=== PATIENT | male | born 1965 | race Hispanic/Latino ===

== ENCOUNTER 2016-09-21 16:56 | Inpatient (IN) | payer MEDICAID ==
[2016-09-21 16:57] VITALS: BMI 25.2
--- NOTE | 2016-09-21 18:16 | C.PDOC ---
History Of Present Illness Patient is a 51 y/o M prescreened for detox, presenting requesting detox from alcohol and heroin. Reports last drink just prior to arrival. Denies somatic complaints. Time Seen by Provider: 09/21/16 18:11 Chief Complaint (Nursing): Substance Abuse Past Medical History Vital Signs: Last Vital Signs Temp 97.7 F 09/21/16 17:04 Pulse 90 09/21/16 17:04 Resp 16 09/21/16 17:04 BP 149/94 H 09/21/16 17:04 Pulse Ox 98 09/21/16 18:43 - Medical History PMH: Arthritis, Hepatitis (C) Denies: CHF, COPD, HIV, HTN, Hypercholesterolemia, Hypothyroidism, Chronic Kidney Disease, Rheumatoid Arthritis Surgical History: - [facility] Procedures ARTHROCENTESIS (10/18/14) CENTRAL VENOUS CATHETER PLACEMENT WITH GUIDANCE (10/18/14) DEBRIDEMENT OF NAIL, NAIL BED OR NAIL FOLD (10/18/14) DESTRUCT-KNEE LESION NEC (10/18/14) KNEE ARTHROSCOPY (10/18/14) KNEE SYNOVECTOMY (10/18/14) Family History: States: Unknown Family Hx - Social History Hx Alcohol Use: Yes Hx Substance Use: Yes (Heroine use) - Immunization History Hx Tetanus Toxoid Vaccination: No Hx Influenza Vaccination: No Hx Pneumococcal Vaccination: No Review Of Systems Constitutional: Negative for: Fever, Chills Cardiovascular: Negative for: Chest Pain Respiratory: Negative for: Cough, Shortness of Breath, SOB with Excertion Gastrointestinal: Negative for: Nausea, Vomiting, Abdominal Pain, Diarrhea, Constipation Genitourinary: Negative for: Dysuria Musculoskeletal: Negative for: Back Pain Neurological: Negative for: Weakness, Numbness, Headache Psych: Negative for: Anxiety, Depression Physical Exam - Physical Exam Appears: Well, Non-toxic, No Acute Distress Skin: Normal Color, Warm, Dry Eye(s): bilateral: Normal Inspection, PERRL, EOMI Chest: Symmetrical Cardiovascular: Rhythm Regular Respiratory: Normal Breath Sounds, No Rales, No Rhonchi, No Wheezing Gastrointestinal/Abdominal: Soft, No Tenderness, No Mass, No Distention Back: Normal Inspection, No CVA Tenderness Extremity: Normal ROM Neurological/Psych: Oriented x3, Normal Speech, Normal Cranial Nerves, Normal Motor Gait: Steady ED Course And Treatment - Laboratory Results Result Diagrams: 09/21/16 18:33 09/21/16 18:33 O2 Sat by Pulse Oximetry: 98 Medical Decision Making Medical Decision Making: Will get ekg, cxray, labs to medical clear for detox admission. 6:43PM Cxray negative 6:51PM CBC and CMP grossly normal. Alcohol level elevated to 208. Pending ekg and urine drug screen. 7:00PM Will sign out to Dr. Duke to follow-up and reevaluate pending psych recommendation. Disposition - Disposition Disposition Time: 19:00 Condition: FAIR - Clinical Impression Clinical Impression: Drug abuse
[2016-09-21 18:42] LABS: BASO % 0.7 % (0.0-2.0); EOS # 0.1 K/uL (0.0-0.7); EOS % 1.7 % (0.0-4.0); HEMOGLOBIN 16.4 g/dL (12.0-18.0); LYMPH # 2.2 K/uL (1.0-4.3); MEAN CELL VOLUME 91.5 fL (80.0-94.0); MEAN CORPUSCULAR HEMOGLOBIN 31.6 pg (27.0-31.0); MEAN CORPUSCULAR HGB CONC 34.5 g/dL (33.0-37.0); MEAN PLATELET VOLUME 8.3 fL (7.2-11.7); MONO # 1.5 K/uL (0.0-0.8); MONO % 22.1 % (0.0-10.0); NEUT % 43.5 % (50.0-75.0); NRBC % 0.3 % (0.0-2.0); PLATELET COUNT 189 K/uL (130-400); RBC 5.19 Mil/uL (4.40-5.90); RED CELL DISTRIBUTION WIDTH 13.5 % (11.5-14.5); WHITE BLOOD COUNT 6.9 K/uL (4.8-10.8)
[2016-09-21 18:44] LABS: ALBUMIN 4.3 g/dL (3.5-5.0)
[2016-09-21 18:46] LABS: GFR AFRICAN-AMERICAN > 60; GFR NON-AFRICAN AMERICAN > 60
[2016-09-21 18:47] LABS: ALB/GLOB RATIO 1.1 (1.0-2.1); ALT/SGPT 71 U/L (21-72); AST/SGOT 100 U/L (17-59); BLOOD UREA NITROGEN 10 mg/dL (9-20); CALCIUM 8.6 mg/dl (8.6-10.4)
[2016-09-21 19:13] LABS: URINE BILIRUBIN NEGATIVE (NEGATIVE); URINE BLOOD NEGATIVE (NEGATIVE); URINE CLARITY Clear (Clear); URINE COLOR Straw (YELLOW); URINE GLUCOSE (UA) NORMAL (Normal); URINE LEUKOCYTE ESTERASE NEG Leu/uL (Negative); URINE NITRATE NEGATIVE (NEGATIVE); URINE PROTEIN NEGATIVE (NEGATIVE); URINE UROBILINOGEN NORMAL mg/dL (0.2-1.0)
[2016-09-21 19:18] LABS: BASOPHIL 2 % (0-2); EOSINOPHIL 1 % (0-4); LYMPHOCYTE 32 % (20-40); MONOCYTE 20 % (0-10); NEUTROPHIL 45 % (50-75); PLATELET ESTIMATE NORMAL (NORMAL); TOTAL CELLS COUNTED 100
[2016-09-21 19:22] LABS: BENZODIAZEPINES, UR NEGATIVE (NEGATIVE)
[2016-09-21 19:23] LABS: BARBITURATES, UR NEGATIVE (NEGATIVE)
[2016-09-21 19:26] LABS: OPIATES, UR POSITIVE (NEGATIVE)
[2016-09-21 19:27] LABS: PHENCYCLIDINE, UR NEGATIVE (NEGATIVE)
[2016-09-22] MEDS ORDERED: Aluminum Hydroxide/Magnesium Hydroxide Susp (30 mL) PO PRN (00:46)
--- NOTE | 2016-09-22 07:59 | RAD ---
HISTORY: detox COMPARISON: None available. TECHNIQUE: Chest PA and lateral FINDINGS: Examination limited by habitus. LUNGS: No focal consolidation. Please note that chest x-ray has limited sensitivity for the detection of pulmonary masses. PLEURA: No significant pleural effusion identified. No definite pneumothorax . CARDIOVASCULAR: Heart size appears within normal limits. OSSEOUS STRUCTURES: Degenerative changes. VISUALIZED UPPER ABDOMEN: Elevation of the right hemidiaphragm. OTHER FINDINGS: None. IMPRESSION: No focal consolidation, significant pleural effusion, or definite pneumothorax identified.
[2016-09-22] MEDS: Multiple Vitamins Tab PO SCH (11:10)
--- NOTE | 2016-09-22 12:37 | PCM.BM ---
<TenzinSari vivas - Last Filed: 09/22/16 12:46> Treatment Plan Problems - Problems identified on initial assessmt Opiate Dependence Date Initiated: 09/22/16 Time Initiated: 12:34 Assessment reference: NA Status: Active ETOH Dependence Date Initiated: 09/22/16 Time Initiated: 12:39 Assessment reference: NA Status: Active Treatment assets and liabiliti Patient Assests: ADL independent Patient Liabilities: substance abuse - Milieu Protocol Maintain good personal hygiene: daily Encourage regular showers, daily Remind patient to perform daily oral care, daily Assist patient to perform ADL's Maintain personal safety: every shift Educate patient to report safety concerns to staff, every shift Monitor environment for contraband/sharps Medication safety: Monitor for expected outcome, potential side effects: every shift, Assess barriers to learning: every shift, Assess readiness for medication education: every shift <Lashay Castillo - Last Filed: 09/22/16 22:54> - Diagnosis (1) Drug abuse Status: Acute Interventions: 09/22/16 22:53 * Assess 7x/week regarding severity of withdrawal * Educate regarding risks, benefits, side effects and alternatives of medications * Use Motivational Interviewing for abstinence * Use CBT for relapse prevention * Medication management for withdrawal symptoms * Encourage medication assisted treatment * (2) Alcohol abuse Status: Acute Interventions: 09/22/16 22:54 * Assess 7x/week regarding severity of withdrawal * Educate regarding risks, benefits, side effects and alternatives of medications * Use Motivational Interviewing for abstinence * Use CBT for relapse prevention * Medication management for withdrawal symptoms * Encourage medication assisted treatment *
--- NOTE | 2016-09-22 15:48 | PCM.PSYCH ---
Initial Psychiatric Evaluation - Initial Psychiatric Evaluation Type of Admission: Voluntary Legal Status: Capacity Chief Complaint (in patient's own words): 'I came to get clean from heroin' History of Present Illness and Precipitating Events: Patient is a 51-year-old male, who lives alone, came to the hospital seeking heroin detox. Poor historian, refused to talk to the team half day at least. Patient states that he injects 10 bags of heroin per day for past 15 years, with longest sobriety period of 13 months. Patient states that he has been to detox 3 times, and rehab once before for opioid use. Patient states that drinks 10 12-oz. cans of beer daily, and smokes 1 pack of cigarette per week. He denies abusing any other substances, but then again he admitted to using cocaine almost daily to our RN earlier. Patient denies any past psychiatric history, hospitalizations, and family history. Past medical history: Hep C s/p treatment Current Medications: Active Medications Generic Name Dose Route Start Last Admin Trade Name Freq PRN Reason Stop Dose Admin Al Hydrox/Mg Hydrox/Simethicone 30 ml 09/22/16 00:46 Maalox 30 Ml PO TID PRN Indigestion / Heartburn Chlordiazepoxide 25 mg 09/22/16 06:00 09/22/16 11:29 Librium PO 09/26/16 05:59 25 mg Q6 SAMSON Administration Taper Chlordiazepoxide 25 mg 09/22/16 00:47 09/22/16 01:37 Librium PO 25 mg Q4H PRN Administration Alcohol Withdrawal Clonidine HCl 0.1 mg 09/22/16 00:47 Catapres PO Q4H PRN Symptoms of alcohol withdrawl Folic Acid 1 mg 09/22/16 10:00 09/22/16 11:10 Folic Acid PO Not Given DAILY SAMSON Gabapentin 300 mg 09/22/16 10:00 09/22/16 11:28 Neurontin PO 300 mg BID SAMSON Administration Hydroxyzine HCl 50 mg 09/22/16 00:47 Atarax PO Q6H PRN Anxiety Ibuprofen 600 mg 09/22/16 00:47 09/22/16 01:38 Motrin Tab PO 600 mg Q6H PRN Administration Pain, moderate (4-7) Loperamide HCl 2 mg 09/22/16 00:46 Imodium PO Q8 PRN Diarrhea Multivitamins 1 tab 09/22/16 10:00 09/22/16 11:10 Hexavitamin PO Not Given DAILY SAMSON Ondansetron HCl 4 mg 09/22/16 00:46 Zofran Tab PO Q8 PRN Nausea/Vomiting Pneumococcal Polyvalent Vaccine 0.5 ml 09/25/16 10:00 Pneumovax 23 Vaccine IM 09/25/16 10:01 .ONCE ONE Thiamine HCl 100 mg 09/22/16 10:00 09/22/16 11:10 Vitamin B1 Tab PO Not Given DAILY SAMSON Trazodone HCl 50 mg 09/22/16 00:47 09/22/16 01:38 Desyrel PO 50 mg HS PRN Administration Insomnia Past Psychiatric History - Past Psychiatric History Previous Treatment History: None Pertinent Medical Hx (Current Medical&Sleep Prob, Allergies): Allergies Allergy/AdvReac Type Severity Reaction Status Date / Time No Known Allergies Allergy Verified 12/13/14 02:54 No Known Home Med 09/21/16 Review of Systems - Psychiatric Psychiatric: Anxiety, Irritability Mental Status Examination - Personal Presentation Personal Presentation: Looks stated age - Affect Affect: Flat - Motor Activity Motor Activity: Calm - Reliability in Providing Information Reliability in Providing Information: Poor, due to altered mood - Speech Speech: Organized, Relevant - Mood Mood: Anxious - Formal Thought Process Formal Thought Process: No Impairment - Cognitive Functions Orientation: Person, Place, Situation, Time Sensorium: Alert Attention/Concentration: Attentive Estimate of Intelligence: Average Judgement: Imparied, as evidence by: Poor judgement Memory: Recent intact, as evidence by: Ability to recall events of the day, Remote intact, as evidenced by: Abilit to recall sig. life events - Risk Risk: Withdrawal, Diminished functioning - Limitations Limitations: Living alone DSM 5 DX - DSM 5 DSM 5 Diagnosis: Opioid withdrawal Opioid use disorder - severe Alcohol use d/o - severe Alcohol wdw Cocaine use d/o - Recommended/Plan of Treatment Treatment Recommendations and Plan of Treatment: Methadone detox Librium detox Gabapentin for augmentation As needed meds and vitamins Attend groups and activities [place] for abstinence and CBT for relapse prevention Support and psychoeducation Consider and encourage MAT Refer to after care 33 min Projected ELOS: 5 days Prognosis: good - Smoking Cessation Smoking Cessation Initiated: Yes
[2016-09-23 06:25] VITALS: TEMP 98.2
[2016-09-23] MEDS: Multiple Vitamins Tab PO SCH (09:22)
[2016-09-23 10:27] VITALS: BP 137/88; PULSE 70; RESP 20; O2SAT 100
--- NOTE | 2016-09-23 15:35 | PCM.PYCHDC ---
Mental Status Examination - Mental Status Examination Orientation: Person, Place, Situation, Time Memory: Intact Mood: Anxious, Other (angry) Affect: Constricted Speech: Appropriate Attention: WNL Concentration: Poor Association: WNL Fund of Knowledge: WNL Formal Thought Process: No Impairment Suicidal Ideation: No Current Homicidal Ideation?: No Discharge Summary - Discharge Note Reason for Hospitalization: Heroin detox, alcohol detox Consultations:: List each consultation separately and include: 1. Reason for request. 2. Findings. 3. Follow-up Summary of Hospital Course include:: 1. Description of specific treatment plan utilized for patients during their course of treatmen. 2. Summarize the time- course for resolution of acute symptoms and/or regressed behaviors. 3. Describe issues identified and worked on during hospitalization. 4. Describe medication utilized. 5. Describe medical problems identified and treated. 6. Reassessment of suicide risk Summary of Hospital Course: On admission: Patient is a 51-year-old male, who lives alone, came to the hospital seeking heroin detox. Poor historian, refused to talk to the team half day at least. Patient states that he injects 10 bags of heroin per day for past 15 years, with longest sobriety period of 13 months. Patient states that he has been to detox 3 times, and rehab once before for opioid use. Patient states that drinks 10 12-oz. cans of beer daily, and smokes 1 pack of cigarette per week. He denies abusing any other substances, but then again he admitted to using cocaine almost daily to our RN earlier. Patient denies any past psychiatric history, hospitalizations, and family history. Past medical history: Hep C s/p treatment Hospital course: The pt was admitted and started on treatment with psychotherapy, support, psychoeducation and medications. [place] and CBT used. The pt did not attend groups and activities much. All the risks and benefits of medications are discussed and the patient understood and agreed. After care discussed with the patient. He was somewhat motivated for anything The patient was slowly improving but he did not believe that and despite getting an extra dose and another was planned for today, he said he is not treated enough here and left AMA. Risks of AMA incl. relapse, OD and even discussed and he still left. Overall, he was very irate, uncooperative and at times angry and mostly withdrawn. - Final Diagnosis (DSM 5) Condition upon Discharge: FAIR DSM 5: Opioid withdrawal Opioid use disorder - severe Alcohol use d/o - severe Alcohol wdw Cocaine use d/o Personality disorder - unspecified Disposition: AGAINST MEDICAL ADVICE Follow-up Treatment Plan: Use relapse prevention skills. Return to ER or call 911 if suicidal, homicidal or symptoms relapse. Stay away from stress, alcohol and drugs. Use relaxation techniques. See primary doctor once a year and get labs. Consider MAT or rehab - Smoking Cessation Smoking Cessation Medication prescribed: No - Antipsychotic Medications Pt discharged on 2 or more routine antipsychotic medications: No
[2016-09-25] MEDS ORDERED: Pneumococcal 23-Valent Vaccine IM ONE (10:00)
== END 2016-09-23 11:50 | disposition left against medical advice (07) | DRG 743 ==
LOC: C.ER 16:56 → C.7D 22:11
PROVIDERS: ADMIT Psychiatry & Neurology Psychiatry; ATTEND Psychiatry & Neurology Psychiatry
PROC: HZ2ZZZZ Detoxification Services for Substance Abuse Treatment (ICD-10-PCS; principal; 2016-09-21)
PROC: HZ59ZZZ Individual Psychotherapy for Substance Abuse Treatment, Supportive (ICD-10-PCS; 2016-09-21)
PROC: HZ46ZZZ Group Counseling for Substance Abuse Treatment, Psychoeducation (ICD-10-PCS; 2016-09-21)
DX: F11.23 Opioid dependence with withdrawal (principal); F10.230 Alcohol dependence with withdrawal, uncomplicated; F14.10 Cocaine abuse, uncomplicated; Z86.19 Personal history of other infectious and parasitic diseases